=== PATIENT | female | born 1955 | race Caucasian/White ===

== ENCOUNTER 2024-12-25 09:59 | Emergency (ER) | payer MEDICARE, OTHER ==
[~2024-12-25] VITALS: Ht 175.3 cm; Wt 104.1 kg
[2024-12-25 10:03] VITALS: BP 156/81; PULSE 96; RESP 77; TEMP 97.5; O2SAT 18
--- NOTE | 2024-12-25 10:44 | DVH ---
EXAM: CT HEAD WITHOUT CONTRAST INDICATION: FALL with pain TECHNIQUE: CT of the head without intravenous contrast. Radiation Dose Information: CT Dose: CTDI volume is 56.6 cm mGy. Dose-length product is 1115.03 mGy*cm The dose indicators for CT are the volume Computed Tomography (CT) Dose Index (CTDIvol) and the Dose Length Product (DLP), and are measured in units of mGy and mGy-cm, respectively. These indicators are not patient dose, but values generated from the CT scanner acquisition factors. The report includes radiation exposure data for exposures received during this examination. COMPARISON: None FINDINGS: There is no evidence of acute intracranial hemorrhage, extra-axial collection, mass effect, midline s hift, herniation or hydrocephalus. The ventricles, sulci and cisterns are age appropriate. The moreira-white differentiation is intact. Patchy periventricular and subcortical white matter hypoattenuation is nonspecific but may be related to small vessel ischemic disease. The visualized paranasal sinuses and mastoid air cells are clear. The surrounding soft tissues and osseous structures are unremarkable. IMPRESSION: No acute intracranial abnormality.
--- NOTE | 2024-12-25 10:47 | ED.PDOC ---
HPI Comments A 69 YEAR OLD FEMALE PRESENTS TO THE ED WITH COMPLAINT OF LACERATION S/P FALL. PATIENT REPORTS THAT SHE HAD TRIPPED AND FELL ONTO HER RIGHT SIDE AT HOME TODAY, HITTING HER HEAD AND INJURING HER RIGHT FIFTH FINGER. PATIENT RELAYS THAT SHE NOW HAS A LACERATION TO HER RIGHT FIFTH FINGER ALONG WITH IT APPEARING DEFORMED. PATIENT DENIES LOC, NUMBNESS, WEAKNESS, TINGLING, SHORTNESS OF BREATH, CHEST PAIN, ABDOMINAL PAIN, NAUSEA, VOMITING, HEADACHE, OR OTHER COMPLAINTS. NO OTHER SYMPTOMS OR MODIFYING FACTORS AT THIS TIME. PATIENT IS ALERT, ORIENTED X 4, AND HAS STEADY GAIT. Chief Complaint: Fall Injury Time Seen by MD: 10:46 Reviewed Notes: Nurses Notes, Medications, Allergies Allergies: Coded Allergies: Cephalexin (Verified Allergy, Mild, 12/25/24) Doxycycline (Verified Allergy, Mild, 12/25/24) Home Meds Active Scripts Tramadol Hcl (Tramadol Hcl) 50 Mg Tab, 50 MG PO BID, #20 TAB Prov:JOB JONES 12/25/24 Clindamycin Hcl (Clindamycin Hcl) 300 Mg Cap, 1 CAP PO TID, #30 CAP Prov:JOB JONES 12/25/24 Information Source: Patient Mode of Arrival: Ambulatory Severity: Moderate Severity of Laceration: Deformity, Controlled Bleeding Complexity: Simple Timing: Hours Prehospital treatment: None Laceration Location: Head, Digit #5 Mechanism: Fall Last Tetanus: UTD Laceration Length (cm): 2 Skin Type: Linear Depth of Injury: SQ Tendon Injury: 0% Capillary Refill: < 3 seconds Tender: Moderate Discharge: Serosanguinous Associated Signs and Symptoms: None Past Medical History PAST MEDICAL HISTORY: Denies Surgical History: Denies all surgeries RN CARDIOLOGY History: No Pertinent RN CARDIOLOGY History Family History Family History: Reviewed,noncontributory to illness Social History Smoker: Non-Smoker Alcohol: Denies ETOH Use Drugs: Denies Drug Use Lives In: Home Constitutional: denies: chills, diaphoresis, fatigue, fever, malaise, sweats, weakness, others EENTM: denies: blurred vision, double vision, ear bleeding, ear discharge, ear drainage, ear pain, ear ringing, eye pain, eye redness, hearing loss, mouth pain, mouth swelling, nasal discharge, nose bleeding, nose congestion, nose pain, photophobia, tearing, throat pain, throat swelling, voice changes, others Respiratory: denies: cough, hemoptysis, orthopnea, SOB at rest, shortness of breath, SOB with excertion, stridor, wheezing, others Cardiovascular: denies: chest pain, dizzy spells, diaphoresis, Dyspnea on exertion, edema, irregular heart beat, left arm pain, lightheadedness, palpitations, PND, syncope, others Gastrointestinal: denies: abdomen distended, abdominal pain, blood streaked bowels, constipated, diarrhea, dysphagia, difficulty swallowing, hematemesis, melena, nausea, poor appetite, poor fluid intake, rectal bleeding, rectal pain, vomiting, others Genitourinary: denies: abnormal vagina bleeding, burning, dyspareunia, dysuria, flank pain, frequency, hematuria, incontinence, pain, , vagina discharge, urgency, others Neurological: reports: headache; denies: dizziness, fainting, left sided numbness, left sided weakness, numbness, paresthesia, pre-existing deficit, right sided numbness, right sided weakness, seizure, speech problems, tingling, tremors, weakness, others Musculoskeletal: reports: joint pain, joint swelling, others (RIGHT FIFTH FINGER DEFORMITY); denies: back pain, gout, muscle pain, muscle stiffness, neck pain Integumetry: reports: laceration (RIGHT FIFTH FINGER LACERATION); denies: bruises, change in color, change in hair/nails, dryness, lesions, lumps, rash, wounds, others Allergic/Immunocompromised: denies: Difficulty Healing, Frequent Infections, Hives, Itching, others Hematologic/Lymphatic: denies: anemia, blood clots, easy bleeding, easy bruising, swollen glands, others Endocrine: denies: excessive hunger, excessive sweating, excessive thirst, excessive urination, flushing, intolerance to cold, intolerance to heat, unexplained weight gain, unexplained weight loss, others Psychiatric: denies: anxiety, bipolar disorder, depression, hopeless, panic disorder, schizophrenia, sleepless, suicidal, others All Other Systems: Reviewed and Negative Physical Exam General Appearance: No Apparent Distress, Normal HEENT: Head (MILD CONTUSION ON RIGHT SIDE FOREHEAD, NO BONY TENDERNESS, SWELLING AND DEFORMITY. ), Normal ENT Inspection, Pharynx Normal, TMs Normal Neck: Full Range of Motion, Non-Tender, Normal, Normal Inspection Respiratory: Chest Non-Tender, Lungs Clear, No Accessory Muscle Use, No Respiratory Distress, Normal Breath Sounds Cardiovascular: No Edema, No JVD, No Murmur, No Gallop, Normal Peripheral Pulses, Regular Rate/Rhythm Breast Exam: Deferred Gastrointestinal: No Organomegaly, Non Tender, No Pulsatile Mass, Normal Bowel Sounds, Soft Genitalia: Deferred Pelvic: Deferred Rectal: Deferred Extremities: Decreased range of motion, No calf tenderness, Normal capillary refill, No pedal edema, Swelling (BONY TENDERNESS AND SWELLING WITH DEFORMITY ON RIGHT 5TH FINGER PIP JOINT. ), Tender (AND SWELLING WITH A SMALL LACERATION ON RIGHT 5TH FINGER. 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 ), Normal Color, Warm Peripheral Pulses: 2+ carotid (R), 2+ carotid (L), 2+ Radial (R), 2+ Radial (L) Lymphatic: No Adenopathy Was a procedure done? Was a procedure done?: Yes Sedation Sedation?: No Laceration Repair : Location RIGHT FIFTH FINGER Length 2CM Anesthetic: Lidocaine, Without epi Laceration Repair Prep: Saline, by Irrigation, Manual Scrub Laceration Repair Wound Comple: epidermis/dermis repair Laceration Repair: Number of sutures (4, 4-0 ETHILON SUTURES NOTED), SQ, Size (4-0), Nylon, Simple, Bacitracin, Gauze Informed consent obtained: No Risks, benefits, and alternati: Yes Reduction Indication: Dislocation Sedation: Consents obtained Post-reduction x-ray show: Reduction, Good Alignment Informed consent obtained: Yes Risks/benefits/alt described: Yes Notes RIGHT 5TH FINGER PIP JOINT DISLOCATION REDUCED AND SPLINTED. Images 1 - Differential diagnosis Generic Laceration: Fracture, Laceration X-Ray, Labs, Meds, VS Vital Signs Date Time Temp Pulse Resp B/P (MAP) Pulse Ox O2 Delivery O2 Flow Rate FiO2 12/25/24 10:03 97.5 96 77 156/81 18 97.5 Current Medications Medications (Trade) Dose Ordered Sig/Boo Route Start Time Stop Time Status Last Admin Acetaminophen (Tylenol Tablet Or Capsule) 1,000 mg ONCE ONCE PO 12/25/24 11:00 12/25/24 11:01 DC 12/25/24 11:19 [place] [address] Ph: [phone] DIAGNOSTIC IMAGING Diagnostic Imaging Report : [id number] Signed PATIENT: JUAN R SMITH ACCT: [id number] UNIT: [id number] : 1955 LOC: ER ROOM / BED: / AGE / SEX: 69 / F ADM STATUS: REG ER SERVICE [id number] ORDERING PHYSICIAN: JOB JONES PROCEDURE(s): HWOCT - HEAD WITHOUT CONTRAST REASON: FALL ORDER NUMBER(s): [id number], ACCESSION NUMBER(s): [id number] EXAM: CT HEAD WITHOUT CONTRAST INDICATION: FALL with pain TECHNIQUE: CT of the head without intravenous contrast. Radiation Dose Information: CT Dose: CTDI volume is 56.6 cm mGy. Dose-length product is 1115.03 mGy*cm The dose indicators for CT are the volume Computed Tomography (CT) Dose Index (CTDIvol) and the Dose Length Product (DLP), and are measured in units of mGy and mGy-cm, respectively. These indicators are not patient dose, but values generated from the CT scanner acquisition factors. The report includes radiation exposure data for exposures received during this examination. COMPARISON: None FINDINGS: There is no evidence of acute intracranial hemorrhage, extra-axial collection, mass effect, midline shift, herniation or hydrocephalus. The ventricles, sulci and cisterns are age appropriate. The moreira-white differentiation is intact. Patchy periventricular and subcortical white matter hypoattenuation is nonspecific but may be related to small vessel ischemic disease. The visualized paranasal sinuses and mastoid air cells are clear. The surrounding soft tissues and osseous structures are unremarkable. IMPRESSION: No acute intracranial abnormality. ATED BY: JOSE LUIS AMARAL MD DICTATED DATE/TIME: 12/25/24 104 SIGNED BY: JOSE LUIS AMARAL MD SIGNED DATE/TIME: 12/25/24 104 CC: [address] [id number] Ph: [phone] DIAGNOSTIC IMAGING Diagnostic Imaging Report : [id number] Signed PATIENT: JUAN R SMITH ACCT: [id number] UNIT: [id number] : 1955 LOC: ER ROOM / BED: / AGE / SEX: 69 / F ADM STATUS: REG ER SERVICE 1123 ORDERING PHYSICIAN: JOB JONES PROCEDURE(s): RFIN5 - R 5TH FINGER XRAY REASON: POST REDUCTION ORDER NUMBER(s): [id number], ACCESSION NUMBER(s): [id number] EXAM: XY R 5TH FINGER XRAY INDICATION: POST REDUCTION TECHNIQUE: 3 views of the right fingers COMPARISON: 12/25/2024 FINDINGS/IMPRESSION: Interval reduction of the 5th PIP dislocation. Fracture of the 5th distal proximal phalanx with intra-articular extension. Surrounding soft tissue edema. ATED BY: RAY VILLA MD DICTATED DATE/TIME: 12/25/241157 SIGNED BY: RAY VILLA MD SIGNED DATE/TIME: 12/25/241157 CC: X-Ray, Labs, Meds, VS Comment EXTERNAL MEDICAL RECORDS REVIEWED: [NONE] INDEPENDENT HISTORIANS: [NONE] SOCIAL DETERMINANTS OF HEALTH: [NONE] LABS ORDERED: NONE REVIEWED AND INTERPRETED RESULTS: CT HEAD, RT HAND XR IMAGING ORDERED: CT HEAD, RT HAND XR TREATMENTS ORDERED: TYLENOL 1G IM, SPLINT APPLIED TO RIGHT HAND PROCEDURES PERFORMED: LACERATION REPAIR OF RIGHT FIFTH FINGER CRITICAL CARE TIME: NONE I HAVE DISCUSSED THE PATIENT WITH THE ATTENDING PHYSICIAN, DR. BARAHONA, HE AGREES WITH THE PATIENT'S PLAN OF CARE AND DISPOSITION. BASED ON HISTORY OF PRESENT ILLNESS, AND PHYSICAL EXAM, PATIENT WILL BE DISCHARGED HOME. DISCUSSED PLAN FOR DISCHARGE HOME WITH RX [CLINDAMYCIN, TRAMADOL]. MEDICATION WARNINGS GIVEN. SHARED DECISION MAKING: DISCUSSED WITH PATIENT THAT THEIR WORKUP WAS NORMAL. PATIENT INSTRUCTED TO FOLLOW UP WITH PRIMARY CARE PROVIDER IN 1-2 DAYS FOR RE- EVALUATION OF SYMPTOMS. PATIENT VERBALIZES UNDERSTANDING TO RETURN TO ED FOR NEW OR WORSENING SYMPTOMS OR IF FOLLOW UP WITH PCP CANNOT BE OBTAINED. PATIENT FEELS COMFORTABLE GOING HOME AT THIS TIME. ALL QUESTIONS ADDRESSED AT TIME OF DISCHARGE. Time of 1ST Reevaluation: 11:00 Reevaluation 1ST: Improved Patient Education/Counseling: Diagnosis, Treatment Family Education/Counseling: No Family Present Departure 1 Departure Time of Disposition: 12:48 Impression: Primary Impression: Fracture of distal phalanx of right little finger Qualified Codes: S62.666B - Nondisplaced fracture of distal phalanx of right little finger, initial encounter for open fracture Additional Impressions: Dislocation of PIP joint of finger Qualified Codes: S63.289A - Dislocation of proximal interphalangeal joint of unspecified finger, initial encounter Laceration of right little finger Qualified Codes: S61.216A - Laceration without foreign body of right little finger without damage to nail, initial encounter Disposition: HOME / SELF CARE / HOMELESS Condition: Stable Additional Instructions: FOLLOW-UP WITH PCP/ORTHOPEDIST IN 1 TO 2 DAYS. TAKE MEDICATIONS PRESCRIBED. RETURN TO ED FOR ANY NEW OR WORSENING SYMPTOMS. e-Prescriptions Tramadol Hcl (Tramadol Hcl) 50 Mg Tab 50 MG PO BID, #20 TAB Prov: JOB JONES 12/25/24 Clindamycin Hcl (Clindamycin Hcl) 300 Mg Cap 1 CAP PO TID, #30 CAP Prov: JOB JONES 12/25/24 Discharged With: Self, Relative Critical Care Note Critical Care Time?: No Stability Stability form required: No Heart Score Heart Score: Heart Score Response (Comments) Value History N/A 0 EKG N/A 0 Age N/A 0 Risk Factors N/A 0 Troponin N/A 0 Total 0 I personally scribed for JOB JONES ([email or web address]) on 12/25/24 at 10:47. Electronically submitted by Virgilio Ramirez ([email or web address]). I personally scribed for JOB JONES ([email or web address]) on 12/25/24 at 10:49. Electronically submitted by Virgilio Ramirez ([email or web address]). I personally scribed for JOB JONES ([email or web address]) on 12/25/24 at 10:52. Electronically submitted by Virgilio Ramirez ([email or web address]). I personally scribed for JOB JONES ([email or web address]) on 12/25/24 at 11:17. Electronically submitted by Virgilio Ramirez ([email or web address]). I personally scribed for JOB JONES PA ([email or web address]) on 12/25/24 at 11:59. Electronically submitted by Virgilio Ramirez ([email or web address]). I personally scribed for JOB JONES PA ([email or web address]) on 12/25/24 at 12:01. Electronically submitted by Virgilio Ramirez ([email or web address]). I personally scribed for JOB JONES PA ([email or web address]) on 12/25/24 at 12:05. Electronically submitted by Virgiilo Ramirez ([email or web address]). I personally scribed for JOB JONES PA ([email or web address]) on 12/25/24 at 12:06. Electronically submitted by Virgilio Ramirez ([email or web address]). I personally scribed for JOB JONES PA ([email or web address]) on 12/25/24 at 12:07. Electronically submitted by Virgilio Ramirez ([email or web address]). JOB JONES Dec 25, 2024 10:47
[2024-12-25] MEDS: ACETAMINOPHEN 500 MG TAB or CAP PO ONE (11:19)
--- NOTE | 2024-12-25 11:27 | DVH ---
CLINICAL INDICATION: Pain FALL TECHNIQUE: 3 radiographic views of the right hand were obtained. Comparison: None FINDINGS/IMPRESSION: Posterior dislocation of the 5th proximal interphalangeal joint.
--- NOTE | 2024-12-25 11:56 | DVH ---
EXAM: XY R 5TH FINGER XRAY INDICATION: POST REDUCTION TECHNIQUE: 3 views of the right fingers COMPARISON: 12/25/2024 FINDINGS/IMPRESSION: Interval reduction of the 5th PIP dislocation. Fracture of the 5th distal proximal phalanx with intra -articular extension. Surrounding soft tissue edema.
[2024-12-25] MEDS ORDERED: TRAM50TA2 PO (12:08)
[2024-12-25] MEDS ORDERED: CLIN1CAP70 PO (12:08)
== END 2024-12-25 12:13 | disposition home or self-care (01) ==
LOC: ER 09:59
DX: S62.666B Nondisplaced fracture of distal phalanx of right little finger, initial encounter for open fracture (principal); Z88.1 Allergy status to other antibiotic agents; Z88.8 Allergy status to other drugs, medicaments and biological substances; W01.0XXA Fall on same level from slipping, tripping and stumbling without subsequent striking against object, initial encounter; Y93.89 Activity, other specified; Y92.098 Other place in other non-institutional residence as the place of occurrence of the external cause; Y99.8 Other external cause status
CPT/HCPCS: 26770; 70450; 73130; 73140